=== PATIENT | male | born 1995 | race Hispanic/Latino ===

== ENCOUNTER 2018-12-24 10:05 | Emergency (ER) | payer OTHER ==
[~2018-12-24] VITALS: Ht 170.2 cm; Wt 105.0 kg
[~2018-12-24 10:05] MED LIST: MEDDOSEPAK OR; NO CURRENT MEDS; ULTRAM50 M1 OR; ULTRAM50 MG PO
[2018-12-24] MEDS ORDERED: AMOXICILLIN500 MG PO (12:11)
[2018-12-24] MEDS ORDERED: NO HOME MEDS (12:12)
[2018-12-24 12:38] VITALS: BP 136/81
== END 2018-12-24 12:38 | disposition home or self-care (01) | DRG 605 ==
LOC: ED 10:05
PROC: 0HQGXZZ Repair Left Hand Skin, External Approach (ICD-10-PCS; principal; 2018-12-24)
DX: S61.412A Laceration without foreign body of left hand, initial encounter (principal); W01.111A Fall on same level from slipping, tripping and stumbling with subsequent striking against power tool or machine, initial encounter; Y93.89 Activity, other specified; Y92.89 Other specified places as the place of occurrence of the external cause; Y99.0 Civilian activity done for income or pay

== ENCOUNTER 2018-12-25 18:24 | Emergency (ER) | payer OTHER ==
[~2018-12-25] VITALS: Ht 170.2 cm; Wt 102.0 kg
[~2018-12-25 18:24] MED LIST changes: +AMOXICILLIN500 MG PO; +NO HOME MEDS
[2018-12-25 18:40] VITALS: BP 125/77
== END 2018-12-25 18:40 | disposition home or self-care (01) | DRG 950 ==
LOC: ED 18:24
DX: S61.402D Unspecified open wound of left hand, subsequent encounter (principal); X58.XXXD Exposure to other specified factors, subsequent encounter

== ENCOUNTER 2019-01-03 17:12 | Emergency (ER) | payer OTHER ==
[~2019-01-03] VITALS: Ht 170.2 cm; Wt 103.0 kg
[2019-01-03 17:50] VITALS: BP 147/89
== END 2019-01-03 17:50 | disposition home or self-care (01) | DRG 950 ==
LOC: ED 17:12
DX: S61.412D Laceration without foreign body of left hand, subsequent encounter (principal); X58.XXXD Exposure to other specified factors, subsequent encounter